=== PATIENT | female | born 1955 ===

== ENCOUNTER 2019-08-22 11:37 | Outpatient (CLI) | payer OTHER ==
[~2019-08-22 11:37] MED LIST: GLUMETZA1000 MG PO; LOSARTAN-HCTZ1 EAC2; ONGLYZA2.5 MG PO; TOPROL XL50 MG PO
== END 2019-08-22 15:00 | disposition home or self-care (01) ==
LOC: LAB 11:37 → EKG 11:37
DX: I10 Essential (primary) hypertension (principal)

== ENCOUNTER 2019-08-27 06:15 | Day surgery (SDC) | payer OTHER ==
[2019-08-27] MEDS ORDERED: PERCOCET 5-3251 EACH PO (11:49)
[2019-08-27] MEDS ORDERED: MACROBID 100 M100 MG PO (11:49)
[2019-08-27] MEDS ORDERED: SURFAK240 M1 PO (11:49)
== END 2019-08-27 17:30 | disposition home or self-care (01) ==
LOC: CIR.AMB → EDBD → CIR.AMB 06:15
DX: N81.3 Complete uterovaginal prolapse (principal)